=== PATIENT | female | born 1970 | race Caucasian/White ===

== ENCOUNTER 2020-05-26 22:33 | Emergency (ER) | payer OTHER, SELFPAY ==
[2020-05-26 22:50] VITALS: BP 187/99; PULSE 91; RESP 18; TEMP 36.5; O2SAT 98; BMI 35.2
--- NOTE | 2020-05-26 22:56 | CTR_ITS ---
PROCEDURE INFORMATION: Exam: CT Head Without Contrast Exam date and time: 05/26/2020 11:09 PM Age: 49 years old Clinical indication: Pain; Headache; Additional info: Severe headache TECHNIQUE: Imaging protocol: Computed tomography of the head without contrast. Radiation optimization: All CT scans at this facility use at least one of these dose optimization techniques: automated exposure control; mA and/or kV adjustment per patient size (includes targeted exams where dose is matched to clinical indication); or iterative reconstruction. COMPARISON: CT head wo con* [id number] 10/06/2019 7:29 PM RADIATION DOSE METRICS: Total DLP (mGy-cm): 775.62 FINDINGS: Brain: No acute intracranial hemorrhage or mass effect. Apparent old infarcts again seen in the high left parietal region, and right cerebellum, not significantly changed. No definite acute infarct by CT. Ventricles: Ventricle size is normal for age. Bones/joints: No definite acute skull fracture. Sinuses: Included paranasal sinuses are essentially clear. Mastoid air cells: No significant acute finding. Vasculature: Vascular calcifications in the internal carotid arteries. CT/CT head wo con* [id number] IMPRESSION: 1. No acute intracranial hemorrhage or mass effect. 2. Other findings discussed above. Radiation Dose CTDIVOL = (mGy): DLP = 775.62 (mGy-cm)
--- NOTE | 2020-05-26 22:57 | ED_ITS ---
HPI - Headache General: Chief Complaint: Headache Stated Complaint: vo Time Seen by Provider: 05/26/20 22:56 Source: patient Mode of arrival: ambulatory Limitations: no limitations History of Present Illness: HPI Narrative: Patient comes in with a 3-day history of headache. Patient has been using acetaminophen and ibuprofen with some relief but the headache with always return. Patient states that the headaches different than her usual migraines. Patient appears well. Patient appears in moderate pain. MD elicited complaint: headache Review of Systems General: Reports: 10 or more systems reviewed and unremarkable except in HPI and below Neuro: Reports: headache(s) Physical Exam Const: COMMON NORMALS: no acute distress and patient oriented x3 GENERAL APPEARANCE: cooperative HENMT: COMMON NORMALS: normocephalic, TM's normal bilaterally and Normal external nose present HEAD & SCALP: normal to inspection and normocephalic NOSE: Normal external nose present TYMPANIC MEMBRANE: TM's normal bilaterally MOUTH: Normal oral and palatal mucosa present THROAT: posterior oropharynx normal Eye: GENERAL EYE: appearance normal, both eyes and all related structures Neck/C-Spine: COMMON NORMALS: full ROM Chest: COMMONS NORMALS: normal inspection of the chest Resp: COMMON NORMALS: normal respiratory effort EFFORT & INSPECTION: Yes able to speak in complete sentences Cardio: COMMON NORMALS: regular rate and regular rhythm RATE: regular rate RHYTHM: regular rhythm GI: COMMON NORMALS: non-tender Back/Pelvis: COMMON NORMALS: thoracic and lumbar spine normal to inspection Extremity: COMMON NORMALS: normal to inspection Neuro: COMMON NORMALS: patient oriented x3 and moves all extremities Psych: COMMON NORMALS: mental status grossly normal and cooperative Skin: COMMON NORMALS: no rashes or lesions noted GENERAL SKIN EXAM: no rashes or lesions noted Course ED course: 1230, patient resting well. Reviewed CT scan and updated on waiting time for lab.wjw 0115, patient has complete resolution of headache and wishes to go home. Vital signs were normal. Patient was released to home with recommendations for further treatment. Vital Signs: Vital signs: Vital Signs Temperature 97.7 F 05/26/20 22:50 Pulse Rate 91 05/26/20 22:50 Respiratory Rate 18 05/26/20 22:50 Blood Pressure 187/99 05/26/20 22:50 Pulse Oximetry 98 05/26/20 22:50 MDM - Headache MDM Narrative: Medical decision making narrative: Patient comes in today with a headache. Patient appears well. No focal neural deficits were noted. Vital signs were normal except for elevated blood pressure. Differential diagnosis includes intracranial bleeding, migraine headache, malingering. Patient was treated for migraine headache with Reglan and diphenhydramine with good results. CT scan of the head was done which showed no acute abnormalities, patient does have some areas of old infarct. Recommend patient follow-up with primary care for abortive treatments for migraine headache. Recommend return to the ER for return of symptoms or new concerns. Discharge Plan Discharge Patient Disposition: Home, Self-Care Clinical Impression: Migraine Qualifiers: Migraine type: unspecified Status migrainosus presence: without status migrainosus Intractability: not intractable Qualified Code(s): G43.909 - Migraine, unspecified, not intractable, without status migrainosus Condition: Stable Discharge Orders: Discharge Order (Routine); Ordered 05/27/20 Ordered By: Zia Melara Discharge Diet: Usual diet Discharge Activity: Increase activity as tolerated Activity Restrictions/Additional Instructions: Home and rest. Continue with routine medications and treatment. Follow-up with primary care for further concerns. Return to the ED for new concerns. Coding Level of Care Code ED Telephone Station Repairer for Courtney Fwyeni Exam Comprehensive
[2020-05-26] MEDS: diphenhydrAMINE 50 mg/mL SDV 1mL 25 MG IVP (23:48)
[2020-05-26] MEDS: sodium chloride 0.9% 500 ML 999 ML IV (23:49)
[2020-05-26] MEDS: metoclopramide 5 mg/mL SDV 2 mL 10 MG IVP (23:49)
[2020-05-27 01:41] VITALS: BP 165/84; PULSE 75; RESP 18; O2SAT 99
== END 2020-05-27 01:43 | disposition home or self-care (01) ==
PROVIDERS: Emergency Provider Nurse Practitioner Family
DX: G43.909 Migraine, unspecified, not intractable, without status migrainosus (principal)
CPT/HCPCS: 12345; 70450; 96361; 96374; 96375; 99282; 99283; J1200; J2765; J7040

== ENCOUNTER 2020-07-30 14:30 | Outpatient (CLI) | payer OTHER, SELFPAY ==
--- NOTE | 2020-07-30 14:41 | MR_ITS ---
WS: [id number] MRI LEFT KNEE HISTORY: OTHER instability, LEFT KNEE COMPARISON: None available. Anterior cruciate ligament: Abnormal appearance of the ACL. There is thickening of the mid to distal tendon with increased signal. High-grade if not complete tear proximally. Posterior cruciate ligament: Intact. Medial collateral ligament: Intact. Posterior lateral corner structures: Intact. Medial menisci: Intact. Normal signal, size and shape. Lateral meniscus: Intact. Normal signal, size and shape. Extensor mechanism: Distal quadriceps tendon and patellar tendons are intact. Fluid and soft tissue: Very small suprapatellar joint effusion. No Do's cyst. Osseous and articular structures: Patellofemoral compartment: Normal. Medial compartment: Very minimal amount of increased T2 signal in the tibial metaphysis. Very mild na rrowing of the medial compartment. Lateral compartment: Minimal narrowing of the compartment fissures and thinning of the cartilage but no full-thickness defect. MR/MR knee LT wo con* [id number] IMPRESSION: 1. High-grade if not complete proximal ACL tear. 2. Mild narrowing of the medial lateral compartments with mild loss of cartila ge.
== END 2020-07-30 14:31 | disposition home or self-care (01) ==
LOC: RADWPI 14:37
PROVIDERS: PCP Nurse Practitioner; Visit Provider Nurse Practitioner
DX: M25.362 Other instability, left knee (principal); S43.52XA Sprain of left acromioclavicular joint, initial encounter; X58.XXXA Exposure to other specified factors, initial encounter
CPT/HCPCS: 73721

== ENCOUNTER 2020-09-04 09:16 | Outpatient (RCR) | payer OTHER, SELFPAY | END 2020-09-08 23:59 | disposition home or self-care (01) | LOC: SPT 09:16 | PROVIDERS: PCP Nurse Practitioner; Referring Provider Orthopaedic Surgery; Visit Provider Orthopaedic Surgery | DX: S83.512A Sprain of anterior cruciate ligament of left knee, initial encounter (principal) | CPT/HCPCS: 97110; 97162 ==

== ENCOUNTER 2020-09-09 06:00 | Outpatient (RCR) | payer OTHER, SELFPAY | END 2020-10-08 23:59 | disposition home or self-care (01) | LOC: SPT 06:00 | PROVIDERS: PCP Nurse Practitioner; Referring Provider Orthopaedic Surgery; Visit Provider Orthopaedic Surgery | DX: S83.512D Sprain of anterior cruciate ligament of left knee, subsequent encounter (principal); X58.XXXD Exposure to other specified factors, subsequent encounter | CPT/HCPCS: 97110 ==

== ENCOUNTER 2022-01-21 06:00 | Outpatient (RCR) | payer OTHER, SELFPAY | END 2022-02-06 23:59 | disposition home or self-care (01) | LOC: GST 06:00 | PROVIDERS: PCP Nurse Practitioner Family; Referring Provider Nurse Practitioner Family; Visit Provider Nurse Practitioner Family | DX: I69.328 Other speech and language deficits following cerebral infarction (principal); I69.398 Other sequelae of cerebral infarction; K11.7 Disturbances of salivary secretion | CPT/HCPCS: 92507; 92523 ==

== ENCOUNTER 2022-02-07 06:00 | Outpatient (RCR) | payer OTHER, SELFPAY | END 2022-02-20 23:59 | disposition home or self-care (01) | LOC: GST 06:00 | PROVIDERS: PCP Nurse Practitioner Family; Referring Provider Nurse Practitioner Family; Visit Provider Nurse Practitioner Family | DX: I69.328 Other speech and language deficits following cerebral infarction (principal); I69.398 Other sequelae of cerebral infarction; K11.7 Disturbances of salivary secretion | CPT/HCPCS: 92507 ==

== ENCOUNTER → 2022-03-26 08:52 | Outpatient (BNVA) | payer OTHER, SELFPAY | PROVIDERS: PCP Nurse Practitioner Family; Visit Provider Family Medicine | DX: G45.9 Transient cerebral ischemic attack, unspecified (principal); I63.512 Cerebral infarction due to unspecified occlusion or stenosis of left middle cerebral artery; Z20.822 Contact with and (suspected) exposure to COVID-19 | CPT/HCPCS: 87635 ==

== ENCOUNTER 2022-03-28 10:57 | Day surgery (SDC) | payer OTHER, SELFPAY ==
[2022-03-27 13:11] VITALS: BMI 35.5
--- NOTE | 2022-03-28 11:47 | USCV_ITS ---
Kelly Villarreal Age: 51 Gender: F : 1970 Exam Date: 03/28/2022 13:52 Ordering Phys: Rosio Alvarez MD ([email or web address]) Technologist: [place] Exam Location: [facility] [place] Indication: Cerebral infarction BP: 177 / 97 HR: 53 Rhythm: Sinus Technical Quality: Adequate MEASUREMENTS (Male / Female) Normal Values Medications Patient given IV sedation by anesthesia service, for details please refer to the anesthesia report. Complications Intubation easy. Attempts x1. No blood on probe post procedure. Patient tolerated procedure well. Proc. Components The patient was brought to the [facility] examination room in a fasting state after obtaining an informed consent. FINDINGS Left Ventricle Normal left ventricular size, systolic function and wall thickness, with no regional wall motion abnormalities. Left ventricular ejection fraction is estimated at 60 %. Right Ventricle Normal right ventricular size and systolic function. Right Atrium Normal right atrial size. Left Atrium Normal left atrial size. LA Appendage Normal left atrial appendage. Normal flow velocities in the left atrial appendage. No thrombus visualized in the left atrial appendage. IA Septum Normal interatrial septum. No patent foramen ovale. No evidence for an atrial septal defect. Mitral Valve Structurally normal mitral valve. No mitral valve stenosis. Mild mitral valve regurgitation. Aortic Valve Structurally normal trileaflet aortic valve. No aortic valve stenosis. Trace aortic valve regurgitation. Tricuspid Valve Structurally normal tricuspid valve. No tricuspid valve stenosis. Trace to mild tricuspid valve regurgitation. Pulmonic Valve Structurally normal pulmonic valve. No pulmonary valve stenosis. Trace pulmonary valve regurgitation. Pericardium No pericardial effusion. Aorta Normal size aortic root and proximal ascending aorta. Normal descending aorta size. No dilation, aneurysm or dissection. Grade 2 atheroma in proximal descending aorta. CONCLUSIONS 1. Normal left ventricular size, systolic function and wall thickness, with no regional wall motion abnormalities. Left ventricular ejection fraction is estimated at 60 %. 2. No evidence of ASD or PFO by color doppler and agitated saline study. 3. Mild mitral valve regurgitation. 4. Trace aortic valve regurgitation. Rosio Alvarez MD (Electronically Signed) Final Date: 29 Mar 2022 22:22 S
[2022-03-28 11:48] VITALS: BP 149/103; PULSE 64; RESP 16; O2SAT 95
--- NOTE | 2022-03-28 11:52 | P.ANESASSM_ITS ---
Pre-Anesthetic Assessment Height/Weight: Height 1.52 m Weight 82.554 kg Operation Date: 03/28/22 12:30 Proposed Procedures p TIMMY 87322/cerebral infraction I63.9/K11.7 disturbances(Not Applicable) - Rosio Alvarez MD Familial anesthetic complications: None Was Beta Ayala taken within 24 hours: N/A Was Clonidine taken within 24 hours: N/A Last intake: > 8hrs Social Tobacco and No alcohol Exam alert, oriented x 3, clear to auscultation bilaterally and regular rate & rhythm minimal R insp wheeze Airway Mallampati: Class I Dentition: false Pulmonary None reported CV/HEM Hypertension None reported Hepatic None reported GI None reported Metabolic Hyperlipidemia and Morbid Obesity [facility] [place] [place] None reported Neuropsych Cerebrovascular Accident Anesthetic Plan ASA status: 3 Anesthesia: MAC Risk of > 500 ml blood loss (7ml/kg in children): No Medications/Allergies Home Medications Medication Instructions Recorded Confirmed Last Taken Type atorvastatin 40 mg tablet 40 mg PO DAILY 01/14/22 03/28/22 03/27/22 History clopidogrel 75 mg tablet (Plavix) 75 mg PO DAILY 01/14/22 03/28/22 03/27/22 History hydroxyzine HCl 25 mg tablet 25 mg PO TID PRN #180 tab 01/14/22 03/28/22 03/27/22 Rx sertraline 50 mg tablet 50 mg PO DAILY #90 tab 01/14/22 03/28/22 03/27/22 Rx atenolol 50 mg tablet 50 mg PO DAILY #90 tab 01/30/22 03/28/22 03/27/22 Rx folic acid-vit B6-vit B12 2.5 1 tab PO DAILY #90 tab 03/14/22 03/28/22 03/27/22 Rx mg-25 mg-2 mg tablet nystatin 100,000 unit/gram topical 1 applic TOPICAL TID PRN g 03/26/22 03/28/22 03/07/22 History powder Allergies Allergy/AdvReac Type Severity Reaction Status Date / Time codeine Allergy Severe ALGY-Difficulty Verified 03/27/22 13:03 Breathing cephalexin [From Keflex] Allergy ALGY-Rash Verified 03/27/22 13:03 [facility] Anesthesia Medical History (Updated 03/27/22 @ 20:13 by Rosio Alvarez MD) Dyslipidemia History of stroke October of 2010 Hypertension Surgical History (Updated 03/27/22 @ 20:00 by Rosio Alvarez MD) History of History of cholecystectomy S/P hysterectomy Family History Father Myocardial infarction Diabetes Hypertension Mother Hypertension Dementia Social History Smoking and tobacco status: former smoker Alcohol intake: current Alcohol intake frequency: few times a month Data Anesthesia Cardiac Studies: No Data to Display
[2022-03-28] MEDS: sodium chloride 0.9% 1,000 ML 30 ML IV (12:09)
--- NOTE | 2022-03-28 13:48 | W.PM.OPSUD ---
Surgery/Procedure H&P Update DATE OF PROCEDURE: March 28, 2022 DATE H&P PERFORMED: 03/26/22 H&P UPDATE INFORMATION: I have reviewed H&P completed within last 30 days, I have examined patient prior to procedure and No changes to prior documentation PREOP DIAGNOSIS: Stroke PLANNED PROCEDURE: Operation Date: 03/28/22 12:30 Proposed Procedures p TIMMY 82710/cerebral infraction I63.9/K11.7 disturbances(Not Applicable) - Rosio Alvarez MD PATIENT REASSESSED PRIOR TO SEDATION, WITH NO CHANGE NOTED: Yes PHYSICAL EXAM: alert, oriented x 3, clear to auscultation bilaterally and regular rate & rhythm AIRWAY EVAL/ANESTHESIA PLAN: Risks, benefits & alternatives of sedation and/or procedure discussed and Patient agrees to continue as planned
[2022-03-28 14:32] VITALS: BP 123/74; PULSE 80; RESP 18; TEMP 36.2; O2SAT 95
[2022-03-28 14:37] VITALS: BP 131/81; PULSE 71; RESP 18; O2SAT 97
[2022-03-28 14:51] VITALS: BP 122/81; PULSE 64; RESP 18; TEMP 36.4; O2SAT 97
--- NOTE | 2022-03-28 15:00 | ANE.PACU2 ---
Inpatient post-anesthesia follow up: Airway intact: Yes Vital signs: Temperature 97.6 F Pulse Rate 64 Respiratory Rate 18 Blood Pressure 122/81 Pulse Oximetry 97 Oxygen Delivery Me thod Room Air Oxygen Flow Rate 3 Fraction of Inspir ed Oxygen Hydration adequate: Yes Nausea and vomiting: No Pain level: 1 Mental status: Baseline
== END 2022-03-28 15:05 | disposition home or self-care (01) ==
PROVIDERS: PCP Nurse Practitioner Family; Visit Provider Internal Medicine Cardiovascular Disease
PROC: (CPT 93312; principal; 2022-03-28 12:30)
DX: Z86.73 Personal history of transient ischemic attack (TIA), and cerebral infarction without residual deficits (principal); E78.5 Hyperlipidemia, unspecified; E66.01 Morbid (severe) obesity due to excess calories; Z68.35 Body mass index [BMI] 35.0-35.9, adult; I10 Essential (primary) hypertension; Z87.891 Personal history of nicotine dependence
CPT/HCPCS: 93312; 93320; 93325; J2001; J2704; J7030

== ENCOUNTER → 2022-04-21 08:24 | Outpatient (BNVA) | payer OTHER, SELFPAY | PROVIDERS: PCP Nurse Practitioner Family; Visit Provider Nurse Practitioner Family | DX: G45.9 Transient cerebral ischemic attack, unspecified (principal); I69.30 Unspecified sequelae of cerebral infarction | CPT/HCPCS: 80053; 80061; 85025 ==

== ENCOUNTER 2022-05-27 14:02 | Outpatient (CLI) | payer OTHER, SELFPAY ==
--- NOTE | 2022-05-27 | MR_ITS ---
WS: [id number] MRI BRAIN WITH AND WITHOUT CONTRAST HISTORY: TRANSIENT CEREBRAL ISCHEMIC ATTACK, UNSPECIFIED COMPARISON: 04/30/2018 TECHNIQUE: Multiplanar imaging performed through the brain with ProHance 17 ml's IV. No restricted diffusion. There is no acute infarct or ischemia. Encephalomalacia in the posterior LEF T frontal lobe with surrounding gliosis is unchanged. From a remote infarct. No acute hemorrhage. No significant volume loss. Chronic small lacunar infarcts in the RIGHT cerebellum. Similar to the prior studies. There is very mild T2 and FLAIR signal hyperintensities from chronic ischemic disease which is unchan ged. Ventricles and extra-axial spaces are normal. Clivus and pituitary gland are normal. Postcontrast images are negative for masses or vascular malformations. Dominant RIGHT vertebral arter y. Dural venous sinuses are normal. Paranasal sinuses: Well aerated with no significant disease. Mastoid air cells: Normal. Calvarium and scalp: Normal. MR/MR head wo/w con [id number] IMPRESSION: 1. No acute infarct or ischemic change. 2. Stable MRI brain since 04/30/2018. 3. Remote infarct with gliosis in the posterior LEFT frontal lobe. 4. Stable small lacunar infarcts in the RIGHT cerebellum. 5. No mass.
--- NOTE | 2022-05-27 16:57 | MR_ITS ---
WS: [id number] MRA ANGIOGRAPHY [place] HISTORY: G45.9 - Transient cerebral ischemic attack, unspecified COMPARISON: None available. TECHNIQUE: 3-D MR angiography is performed of the [place]. All images are reviewed including source images. Small caliber but patent LEFT vertebral artery. The RIGHT vertebral artery is dominant. Normal size b asilar artery. Posterior communicating arteries are both identified with the RIGHT being larger in si [place]. Posterior cerebral arteries are patent. Intracranial portion of the internal carotid arteries are normal course and caliber. No significant a therosclerosis, stenosis or aneurysm identified. Middle and anterior cerebral arteries are both paten t with no significant disease. Very slight decrease in size of the LEFT distal MCA but this is probab ly normal for this patient. No occlusions. Anterior communicating artery is also normal. MR/MR angio head wo con [id number] IMPRESSION: 1. No aneurysm or significant occlusions throughout the [place]. 2. Dominant RIGHT vertebral artery.
== END 2022-05-27 14:03 | disposition home or self-care (01) ==
PROVIDERS: PCP Nurse Practitioner Family; Visit Provider Specialist
DX: G45.9 Transient cerebral ischemic attack, unspecified (principal); I69.30 Unspecified sequelae of cerebral infarction; G35 Multiple sclerosis
CPT/HCPCS: 70544; 70553

== ENCOUNTER 2022-09-22 18:45 | Outpatient (CLI) | payer OTHER, SELFPAY | END 2022-09-22 18:46 | disposition home or self-care (01) | LOC: SLEEP 09-24 09:39 | PROVIDERS: PCP Nurse Practitioner Family; Visit Provider Internal Medicine Cardiovascular Disease | DX: G47.33 Obstructive sleep apnea (adult) (pediatric) (principal); I69.30 Unspecified sequelae of cerebral infarction | CPT/HCPCS: G0399 ==

== ENCOUNTER → 2023-05-27 15:21 | Outpatient (BNVA) | payer OTHER, SELFPAY | PROVIDERS: PCP Nurse Practitioner Family; Visit Provider Nurse Practitioner Family | DX: E78.5 Hyperlipidemia, unspecified (principal); I10 Essential (primary) hypertension | CPT/HCPCS: 80053; 80061; 84443; 85025 ==

== ENCOUNTER 2024-03-18 04:43 | Emergency (ER) | payer OTHER, SELFPAY ==
--- NOTE | 2024-03-18 04:50 | XRR_ITS ---
PROCEDURE INFORMATION: Exam: XR Chest Exam date and time: 03/18/2024 5:13 AM Age: 53 years old Clinical indication: Angina; Additional info: Chest pain TECHNIQUE: Imaging protocol: Radiologic exam of the chest. Views: 1 view. COMPARISON: No relevant prior studies available. FINDINGS: Lungs: Unremarkable. No consolidation. Pleural spaces: Unremarkable. No pleural effusion. No pneumothorax. Heart/Mediastinum: Unremarkable. No cardiomegaly. Bones/joints: Unremarkable. XR/XR chest 1V portable [id number] IMPRESSION: No acute cardiopulmonary findings.
--- NOTE | 2024-03-18 04:50 | ECG_ITS ---
[facility] Test Date: 2024-03-18 Pat Name: Kelly Villarreal Department: Room: Gender: Female Cut To Length Operator: : 1970 Requested By: Dale Kimbrough Order Number: [id number] Erendira MD: Jason Mayo M.D. Measurements Intervals [place] Rate: 62 P: 24 CO: 148 QRS: 62 QRSD: 89 T: 21 QT: 393 QTc: 400 Interpretive Statements SINUS RHYTHM No previous ECG available for comparison Electronically Signed On 03-18-2024 9:19:37 CDT by Jason Mayo M.D. [email or web address]
[2024-03-18 04:58] VITALS: BP 166/69; PULSE 62; RESP 20; TEMP 36.6; O2SAT 96; BMI 36.3
--- NOTE | 2024-03-18 05:02 | ED_ITS ---
Documented by User: Dale Kimbrough DO 03/18/24 05:07 HPI - Chest Pain 2 General: Chief Complaint: Chest Pain Stated Complaint: Chest Pains Time Seen by Provider: 03/18/24 04:51 History of Present Illness: Patient presents to the ER with chest pain that woke her up from sleep at about 2 AM this morning. Patient said it was substernal and had some numbness that went to her left arm at times at other times went to her right arm. Patient says she did take a nitro and the pain had resolved upon arrival to the ER. Patient is never had any cardiac history before. Patient does have a history of strokes. Patient is on Xarelto. She denies any shortness of breath, diaphoresis, nausea vomiting, Review of Systems 2 General: Reports: 10 or more systems reviewed and unremarkable except in HPI and below PFSH ED 2 PFSH: Medical History Dyslipidemia History of stroke October of 2010 Hypertension Left acute arterial ischemic stroke, MCA (middle cerebral artery) Stroke Surgical History History of cholecystectomy History of S/P hysterectomy Family History Father Myocardial infarction Diabetes Hypertension Mother Hypertension Dementia Social History Smoking and tobacco/nicotine status: never used tobacco/nicotine Alcohol intake: current Alcohol intake frequency: few times a month Substance/Drug Use: never Physical Exam 2 Const: COMMON NORMALS: no acute distress, average body habitus, patient oriented x3, no limitations, healthy appearing, alert and well nourished HENMT: COMMON NORMALS: normocephalic, atraumatic, hearing grossly normal bilaterally, external ears normal, Normal external nose present, moist oral mucous membranes and oropharynx normal HEAD & SCALP: normocephalic and atraumatic NOSE: Normal external nose present EXTERNAL EAR: Yes external ears normal Neck/C-Spine: COMMON NORMALS: no JVD Chest: COMMONS NORMALS: normal inspection of the chest and normal palpation of entire chest wall Resp: COMMON NORMALS: normal respiratory effort, No retractions, No use of accessory muscles and clear to auscultation bilaterally AUSCULTATION: clear to auscultation bilaterally Cardio: COMMON NORMALS: no JVD, regular rate, regular rhythm, S1 normal heart sound present, S2 normal heart sound present, No gallops present (Cardio), No clicks present (Cardio), No murmurs present (Cardio) and No rub (Cardio) R ATE: regular rate RHYTHM: regular rhythm HEART SOUNDS: S1 normal heart sound present and S2 normal heart sound present GI: COMMON NORMALS: Normal to inspection, nondistended, normoactive bowel sounds present, Soft to palpation, non-tender, No hepatosplenomegaly present and no masses PALPATION: Yes Soft to palpation and Yes No hepatosplenomegaly present Neuro: COMMON NORMALS: patient oriented x3 SENSORIUM/ORIENTATION: Yes alert Course 2 Vital Signs: Vital signs: Vital Signs Temperature 97.8 F 03/18/24 04:58 Pulse Rate 58 L 03/18/24 06:31 Respiratory Rate 21 H 03/18/24 06:31 Blood Pressure 123/70 03/18/24 06:31 Pulse Oximetry 92 03/18/24 06:31 Oxygen Delivery Me thod Nasal Cannula 03/18/24 06:31 Oxygen Flow Rate 3 03/18/24 06:31 MDM - Chest Pain Differential Diagnosis Unlikely acute massive pulmonary embolism, acute respiratory failure, acute myocardial infarction, cardiac arrest or sudden cardiac Medical Records I reviewed the patient's medical records. Lab Data I reviewed the patient's lab results. 03/18/24 05:06 03/18/24 05:06 Laboratory Results WBC 11.34 10^3/uL (3.29-11.43) 03/18/24 05:06 RBC 5.09 10^6/uL (3.85-5.65) 03/18/24 05:06 Hgb 14.80 g/dL (11.27-16.99) 03/18/24 05:06 Hct 44.7 % (36-47) 03/18/24 05:06 MCV 87.8 fl (85-98) 03/18/24 05:06 MCH 29.1 pg (27-33) 03/18/24 05:06 MCHC 33.1 g/dL (30-55) 03/18/24 05:06 RDW 13.2 % (12.1-15.1) 03/18/24 05:06 Plt Count 199 10^3/cmm (157-399) 03/18/24 05:06 MPV 8.3 fL (7.4-10.4) 03/18/24 05:06 Neut % (Auto) 80.3 % 03/18/24 05:06 Lymph % (Auto) 11.4 % 03/18/24 05:06 [place] % (Auto) 6.3 % 03/18/24 05:06 Eos % (Auto) 1.3 % 03/18/24 05:06 Baso % (Auto) 0.4 % 03/18/24 05:06 Neut # (Auto) 9.11 10^3/uL (1.8-7.7) H 03/18/24 05:06 Lymph # (Auto) 1.3 10^3/uL (0.8-4.8) 03/18/24 05:06 [place] # (Auto) 0.7 10^3/uL (0.2-0.9) 03/18/24 05:06 Eos # (Auto) 0.2 10^3/uL (0.0-0.8) 03/18/24 05:06 Baso # (Auto) 0.1 10^3/uL (0.0-0.1) 03/18/24 05:06 Nucleated RBC % (auto) 0 % 03/18/24 05:06 Nucleated RBCs # 0.0 /100WBC 03/18/24 05:06 Sodium 139 mmol/L (136-145) 03/18/24 05:06 Potassium 4.3 mmol/L (3.5-5.1) 03/18/24 05:06 Chloride 103 mmol/L (98-107) 03/18/24 05:06 Carbon Dioxide 27 mmol/L (22-29) 03/18/24 05:06 Anion Gap 13.3 (5-19) 03/18/24 05:06 BUN 12 mg/dL (6-20) 03/18/24 05:06 Creatinine 0.9 mg/dL (0.5-0.9) 03/18/24 05:06 GFR Calculation 65.0 mL/min (90-130) L 03/18/24 05:06 Glucose 195 mg/dL (65-115) H 03/18/24 05:06 Calculated Osmolality 293 mOsm/kg (285-295) 03/18/24 05:06 Calcium 9.0 mg/dL (8.5-10.5) 03/18/24 05:06 Total Bilirubin 0.4 mg/dL (0.15-1.2) 03/18/24 05:06 AST 13 U/L (0-32) 03/18/24 05:06 ALT 13 U/L (0-33) 03/18/24 05:06 Alkaline Phosphatase 90 U/L (35-105) 03/18/24 05:06 Troponin T Baseline < 6 ng/L (0-10) 03/18/24 05:06 Troponin T 120 Minute 6.00 ng/L (0-10) 03/18/24 06:37 Delta Troponin T 0.08110 ABS# (0-10) 03/18/24 06:37 Total Protein 7.2 g/dL (6.6-8.7) 03/18/24 05:06 Albumin 4.0 g/dL (3.5-5.2) 03/18/24 05:06 Globulin 3.2 g/dL (1.3-4.6) 03/18/24 05:06 All radiology interpretation(s) finalized by discharge Discharge Plan Discharge Patient Disposition: Home Clinical Impression: Chest pain Condition: Stable Prescriptions: No Action nystatin 100,000 unit/gram powder 1 applic topical TID PRN (Reason: Rash) cyclobenzaprine 10 mg tablet 10 mg PO TID PRN (Reason: muscle spasm) Qty: 20 0RF atenolol 50 mg tablet See Rx Instructions .ROUTE .COMPLEX Qty: 90 0RF Dose Instruction: TAKE 1 TABLET BY MOUTH EVERY DAY Rx Instructions: TAKE 1 TABLET BY MOUTH EVERY DAY fluconazole 150 mg tablet 150 mg PO Q3D Qty: 2 0RF hydroxyzine HCl 25 mg tablet See Rx Instructions .ROUTE .COMPLEX Qty: 90 3RF Dose Instruction: TAKE ONE TABLET BY MOUTH THREE TIMES DAILY NEEDED FOR ANXIETY Rx Instructions: TAKE ONE TABLET BY MOUTH THREE TIMES DAILY NEEDED FOR ANXIETY sertraline 100 mg tablet See Rx Instructions .ROUTE .COMPLEX Qty: 90 3RF Dose Instruction: TAKE ONE TABLET BY MOUTH ONCE DAILY Rx Instructions: TAKE ONE TABLET BY MOUTH ONCE DAILY atorvastatin 40 mg tablet See Rx Instructions .ROUTE .COMPLEX Qty: 90 3RF Dose Instruction: TAKE ONE TABLET BY MOUTH ONCE DAILY AT BEDTIME Rx Instructions: TAKE ONE TABLET BY MOUTH ONCE DAILY AT BEDTIME Coricidin HBP Chest Kirk-Cough 10-200 mg capsule 1 tab-cap PO Q8H PRN (Reason: cough) Qty: 30 0RF Xarelto 20 mg tablet See Rx Instructions .ROUTE .COMPLEX Qty: 30 3RF Dose Instruction: TAKE ONE TABLET BY MOUTH ONCE DAILY MUST ADMINISTER WITH EVENING MEAL Rx Instructions: TAKE ONE TABLET BY MOUTH ONCE DAILY MUST ADMINISTER WITH EVENING MEAL Farxiga 10 mg tablet See Rx Instructions .ROUTE .COMPLEX Qty: 90 3RF Dose Instruction: TAKE ONE TABLET BY MOUTH ONCE DAILY IN THE MORNING Rx Instructions: TAKE ONE TABLET BY MOUTH ONCE DAILY IN THE MORNING Discharge Orders: Discharge ED (Routine); Ordered 03/18/24 Ordered By: Suzette Srinivasan Referrals: Nery Dumont JOB COUNSELOR [Primary Care Provider] - 4-7 days Discharge Diet: Advance as tolerated Discharge Activity: Resume usual activity Patient Instructions: Chest Pain (ED) Coding Level of Care Code ED Sales Market Leader for Chg Fwd Documented by User: Suzette Srinivasan MD 03/18/24 07:18 HPI - Chest Pain 2 General: Chief Complaint: Chest Pain Stated Complaint: Chest Pains Time Seen by Provider: 03/18/24 04:51 [facility] ED 2 PFSH: Medical History Dyslipidemia History of stroke October of 2010 Hypertension Left acute arterial ischemic stroke, MCA (middle cerebral artery) Stroke Surgical History History of cholecystectomy History of S/P hysterectomy Family History Father Myocardial infarction Diabetes Hypertension Mother Hypertension Dementia Social History Smoking and tobacco/nicotine status: never used tobacco/nicotine Alcohol intake: current Alcohol intake frequency: few times a month Substance/Drug Use: never Course 2 Vital Signs: Vital signs: Vital Signs Temperature 97.8 F 03/18/24 04:58 Pulse Rate 58 L 03/18/24 06:31 Respiratory Rate 21 H 03/18/24 06:31 Blood Pressure 123/70 03/18/24 06:31 Pulse Oximetry 92 03/18/24 06:31 Oxygen Delivery Me thod Nasal Cannula 03/18/24 06:31 Oxygen Flow Rate 3 03/18/24 06:31 MDM - Chest Pain Medical Decision Making Patient presents for chest pains atypical in nature she is well-appearing here she is not requiring any oxygen currently and vital signs are normal she was turned over to me by Dr. Kimbrough pending 2-hour troponin it is negative she is stable for discharge she is follow-up with PCP return if worsening she understands agrees to plan she has no signs of dissection or pulmonary embolism Lab Data 03/18/24 05:06 03/18/24 05:06 Laboratory Results WBC 11.34 10^3/uL (3.29-11.43) 03/18/24 05:06 RBC 5.09 10^6/uL (3.85-5.65) 03/18/24 05:06 Hgb 14.80 g/dL (11.27-16.99) 03/18/24 05:06 Hct 44.7 % (36-47) 03/18/24 05:06 MCV 87.8 fl (85-98) 03/18/24 05:06 MCH 29.1 pg (27-33) 03/18/24 05:06 MCHC 33.1 g/dL (30-55) 03/18/24 05:06 RDW 13.2 % (12.1-15.1) 03/18/24 05:06 Plt Count 199 10^3/cmm (157-399) 03/18/24 05:06 MPV 8.3 fL (7.4-10.4) 03/18/24 05:06 Neut % (Auto) 80.3 % 03/18/24 05:06 Lymph % (Auto) 11.4 % 03/18/24 05:06 [place] % (Auto) 6.3 % 03/18/24 05:06 Eos % (Auto) 1.3 % 03/18/24 05:06 Baso % (Auto) 0.4 % 03/18/24 05:06 Neut # (Auto) 9.11 10^3/uL (1.8-7.7) H 03/18/24 05:06 Lymph # (Auto) 1.3 10^3/uL (0.8-4.8) 03/18/24 05:06 [place] # (Auto) 0.7 10^3/uL (0.2-0.9) 03/18/24 05:06 Eos # (Auto) 0.2 10^3/uL (0.0-0.8) 03/18/24 05:06 Baso # (Auto) 0.1 10^3/uL (0.0-0.1) 03/18/24 05:06 Nucleated RBC % (auto) 0 % 03/18/24 05:06 Nucleated RBCs # 0.0 /100WBC 03/18/24 05:06 Sodium 139 mmol/L (136-145) 03/18/24 05:06 Potassium 4.3 mmol/L (3.5-5.1) 03/18/24 05:06 Chloride 103 mmol/L (98-107) 03/18/24 05:06 Carbon Dioxide 27 mmol/L (22-29) 03/18/24 05:06 Anion Gap 13.3 (5-19) 03/18/24 05:06 BUN 12 mg/dL (6-20) 03/18/24 05:06 Creatinine 0.9 mg/dL (0.5-0.9) 03/18/24 05:06 GFR Calculation 65.0 mL/min (90-130) L 03/18/24 05:06 Glucose 195 mg/dL (65-115) H 03/18/24 05:06 Calculated Osmolality 293 mOsm/kg (285-295) 03/18/24 05:06 Calcium 9.0 mg/dL (8.5-10.5) 03/18/24 05:06 Total Bilirubin 0.4 mg/dL (0.15-1.2) 03/18/24 05:06 AST 13 U/L (0-32) 03/18/24 05:06 ALT 13 U/L (0-33) 03/18/24 05:06 Alkaline Phosphatase 90 U/L (35-105) 03/18/24 05:06 Troponin T Baseline < 6 ng/L (0-10) 03/18/24 05:06 Troponin T 120 Minute 6.00 ng/L (0-10) 03/18/24 06:37 Delta Troponin T 0.88147 ABS# (0-10) 03/18/24 06:37 Total Protein 7.2 g/dL (6.6-8.7) 03/18/24 05:06 Albumin 4.0 g/dL (3.5-5.2) 03/18/24 05:06 Globulin 3.2 g/dL (1.3-4.6) 03/18/24 05:06 EKG Data EKG 1: I personally reviewed and interpreted this EKG as follows: EKG interpretation date: 03/18/24 EKG interpretation time: 07:08 Interpretation: sinus barb hr [address] or t wave abnormalities qrs 94 qtc 399 Discharge Plan Discharge Patient Disposition: Home Clinical Impression: Chest pain Condition: Stable Prescriptions: No Action nystatin 100,000 unit/gram powder 1 applic topical TID PRN (Reason: Rash) cyclobenzaprine 10 mg tablet 10 mg PO TID PRN (Reason: muscle spasm) Qty: 20 0RF atenolol 50 mg tablet See Rx Instructions .ROUTE .COMPLEX Qty: 90 0RF Dose Instruction: TAKE 1 TABLET BY MOUTH EVERY DAY Rx Instructions: TAKE 1 TABLET BY MOUTH EVERY DAY fluconazole 150 mg tablet 150 mg PO Q3D Qty: 2 0RF hydroxyzine HCl 25 mg tablet See Rx Instructions .ROUTE .COMPLEX Qty: 90 3RF Dose Instruction: TAKE ONE TABLET BY MOUTH THREE TIMES DAILY NEEDED FOR ANXIETY Rx Instructions: TAKE ONE TABLET BY MOUTH THREE TIMES DAILY NEEDED FOR ANXIETY sertraline 100 mg tablet See Rx Instructions .ROUTE .COMPLEX Qty: 90 3RF Dose Instruction: TAKE ONE TABLET BY MOUTH ONCE DAILY Rx Instructions: TAKE ONE TABLET BY MOUTH ONCE DAILY atorvastatin 40 mg tablet See Rx Instructions .ROUTE .COMPLEX Qty: 90 3RF Dose Instruction: TAKE ONE TABLET BY MOUTH ONCE DAILY AT BEDTIME Rx Instructions: TAKE ONE TABLET BY MOUTH ONCE DAILY AT BEDTIME Coricidin HBP Chest Kirk-Cough 10-200 mg capsule 1 tab-cap PO Q8H PRN (Reason: cough) Qty: 30 0RF Xarelto 20 mg tablet See Rx Instructions .ROUTE .COMPLEX Qty: 30 3RF Dose Instruction: TAKE ONE TABLET BY MOUTH ONCE DAILY MUST ADMINISTER WITH EVENING MEAL Rx Instructions: TAKE ONE TABLET BY MOUTH ONCE DAILY MUST ADMINISTER WITH EVENING MEAL Farxiga 10 mg tablet See Rx Instructions .ROUTE .COMPLEX Qty: 90 3RF Dose Instruction: TAKE ONE TABLET BY MOUTH ONCE DAILY IN THE MORNING Rx Instructions: TAKE ONE TABLET BY MOUTH ONCE DAILY IN THE MORNING Discharge Orders: Discharge ED (Routine); Ordered 03/18/24 Ordered By: Suzette Srinivasan Referrals: Nery Dumont NP [Primary Care Provider] - 4-7 days Discharge Diet: Advance as tolerated Discharge Activity: Resume usual activity Patient Instructions: Chest Pain (ED) Coding Level of Care Code ED Sales Market Leader for Courtney Steele
[2024-03-18 05:12] LABS: Basophils # 0.1 10^3/uL (0.0-0.1); Basophils % 0.4 %; Eosinophils # 0.2 10^3/uL (0.0-0.8); Eosinophils % 1.3 %; Hematocrit 44.7 % (36-47); Lymphocytes # 1.3 10^3/uL (0.8-4.8); Lymphocytes % 11.4 %; Mean Corpuscular HGB Conc 33.1 g/dL (30-55); Mean Corpuscular Hemoglobin 29.1 pg (27-33); Mean Corpuscular Volume 87.8 fl (85-98); Mean Platelet Volume 8.3 fL (7.4-10.4); Monocytes # 0.7 10^3/uL (0.2-0.9); Monocytes % 6.3 %; Neutrophils # 9.11 10^3/uL (1.8-7.7); Neutrophils % 80.3 %; Nucleated Red Blood Cells % 0 %; Platelet Count 199 10^3/cmm (157-399); Red Blood Count 5.09 10^6/uL (3.85-5.65); Red Cell Distribution Width 13.2 % (12.1-15.1); White Blood Count 11.34 10^3/uL (3.29-11.43)
[2024-03-18 05:29] LABS: Troponin(5th) Baseline < 6 ng/L (0-10)
[2024-03-18 05:30] LABS: Alanine Aminotransferase 13 U/L (0-33); Alkaline Phosphatase 90 U/L (35-105); Anion Gap 13.3 (5-19); Aspartate Amino Transferase 13 U/L (0-32); Blood Urea Nitrogen 12 mg/dL (6-20); Carbon Dioxide 27 mmol/L (22-29); Chloride 103 mmol/L (98-107); Creatinine Clr Calc Pharmacy 68.0657; Globulin 3.2 g/dL (1.3-4.6); Glucose 195 mg/dL (65-115); Osmolality Calculated 293 mOsm/kg (285-295); Potassium 4.3 mmol/L (3.5-5.1); Sodium 139 mmol/L (136-145); Total Bilirubin 0.4 mg/dL (0.15-1.2); Total Protein 7.2 g/dL (6.6-8.7)
[2024-03-18 06:31] VITALS: BP 123/70; PULSE 58; RESP 21; O2SAT 92
--- NOTE | 2024-03-18 07:08 | ECG_ITS ---
[facility] Test Date: 2024-03-18 Pat Name: Kelly Villarreal Department: Room: Gender: Female Engine Tester: : 1970 Requested By: Dale Kimbrough Order Number: [id number] Erendira MD: Jason Mayo M.D. Measurements Intervals [place] Rate: 59 P: 19 IA: 153 QRS: 63 QRSD: 94 T: 37 QT: 400 QTc: 398 Interpretive Statements SINUS BRADYCARDIA NONSPECIFIC T-WAVE ABNORMALITY Compared to ECG 03/18/2024 04:45:40 T-wave abnormality now present Sinus rhythm no longer present Electronically Signed On 03-18-2024 9:22:38 CDT by Jason Mayo M.D. [id number]
[2024-03-18 07:09] LABS: Troponin 5 2HR Delta 0.00001 ABS# (0-10)
[2024-03-18 08:38] VITALS: BP 123/70; PULSE 58; RESP 21; TEMP 36.6; O2SAT 92
== END 2024-03-18 08:40 | disposition home or self-care (01) ==
PROVIDERS: Emergency Medicine; Emergency Provider Emergency Medicine; PCP Nurse Practitioner Family
DX: R07.9 Chest pain, unspecified (principal); E78.5 Hyperlipidemia, unspecified; Z86.73 Personal history of transient ischemic attack (TIA), and cerebral infarction without residual deficits; I10 Essential (primary) hypertension
CPT/HCPCS: 71045; 80053; 84484; 85025; 93005; 99285

== ENCOUNTER → 2024-07-20 09:21 | Outpatient (BNVA) | payer OTHER, SELFPAY | PROVIDERS: PCP Nurse Practitioner Family; Visit Provider Nurse Practitioner Family | DX: I10 Essential (primary) hypertension (principal); R73.09 Other abnormal glucose | CPT/HCPCS: 80053; 80061; 83036; 84443 ==

== ENCOUNTER → 2024-07-25 13:43 | Outpatient (BNVA) | payer OTHER, SELFPAY | PROVIDERS: PCP Nurse Practitioner Family; Visit Provider Nurse Practitioner Family | DX: E11.9 Type 2 diabetes mellitus without complications (principal) | CPT/HCPCS: 81000; 81003; 82043 ==

== ENCOUNTER → 2024-12-01 09:35 | Outpatient (BNVA) | payer BC, SELFPAY | PROVIDERS: PCP Nurse Practitioner Family; Visit Provider Nurse Practitioner Family | DX: E11.9 Type 2 diabetes mellitus without complications (principal) | CPT/HCPCS: 80053; 83036 ==

== ENCOUNTER → 2025-07-13 08:30 | Outpatient (BNVA) | payer OTHER, SELFPAY | PROVIDERS: PCP Family Medicine; Visit Provider Family Medicine | DX: I10 Essential (primary) hypertension (principal); R79.89 Other specified abnormal findings of blood chemistry; E78.5 Hyperlipidemia, unspecified; E11.9 Type 2 diabetes mellitus without complications; I69.30 Unspecified sequelae of cerebral infarction; Z79.01 Long term (current) use of anticoagulants; E83.42 Hypomagnesemia | CPT/HCPCS: 80053; 80061; 82043; 82306; 82607; 83036; 83735; 84443; 85025 ==

== ENCOUNTER 2025-07-25 11:22 | Outpatient (CLI) | payer OTHER, SELFPAY ==
--- NOTE | 2025-07-25 11:20 | MM_ITS ---
WS: [id number] BILATERAL 3D TOMOSYNTHESIS DIGITAL SCREENING MAMMOGRAPHY WITH CAD CLINICAL INFORMATION: Z12.31 - Encounter for screening mammogram for malignant ... HISTORY: Screening mammogram. No current complaints. COMPARISON: 2020 TECHNIQUE: Bilateral CC and MLO views. FINDINGS: Scattered fibroglandular densities bilaterally. No suspicious focal mass, asymmetry, calcifications, or architectural distortion. No evidence of malignancy. A few incidental punctate calcifications. MM/MM scr tomosynthesis [id number] IMPRESSION: DENSITY: There are scattered areas of fibroglandular density. BI-RADS: 2 - Benign. FOLLOW UP: 1 Year Follow-up Recommend return to annual screening mammography.
== END 2025-07-25 11:23 | disposition home or self-care (01) ==
PROVIDERS: PCP Family Medicine; Visit Provider Family Medicine
DX: Z12.31 Encounter for screening mammogram for malignant neoplasm of breast (principal); R92.323 Mammographic fibroglandular density, bilateral breasts; R92.1 Mammographic calcification found on diagnostic imaging of breast
CPT/HCPCS: 77063; 77067

== ENCOUNTER 2025-08-01 15:31 | Outpatient (CLI) | payer OTHER, SELFPAY ==
--- NOTE | 2025-08-01 15:45 | USCV_ITS ---
Kelly Villarreal Age: 55 Gender: F : 1970 Exam Date: 08/01/2025 15:59 Ordering Phys: Khanh Stringer DO Technologist: RANDY [place] [facility] [place]: cyanosis HISTORY: cyanosis PROCEDURES: Venous duplex imaging was performed in bilateral lower extremities. The following venous structures were evaluated: common femoral vein, profunda vein, proximal portion of the greater saphenous vein, superficial femoral vein, and the popliteal vein. In addition, the posterior tibial and peroneal trunk were evaluated. FINDINGS: Normal 2-D Doppler and augmentation and compressibility throughout the lower extremity venous structures. Additional imaging through the proximal calf veins also reveals no thrombus. Limited evaluation of the greater saphenous vein is patent with no thrombus. CONCLUSIONS No evidence of right lower extremity DVT. No evidence of left lower extremity DVT. Deejay Cox MD (Electronically Signed) Final Date: 02 August 2025 09:00 S
== END 2025-08-01 15:32 | disposition home or self-care (01) ==
LOC: RAD 15:31
PROVIDERS: PCP Family Medicine; Visit Provider Family Medicine
DX: I99.9 Unspecified disorder of circulatory system (principal)
CPT/HCPCS: 93970

== ENCOUNTER 2025-08-10 09:15 | Outpatient (CLI) | payer OTHER, SELFPAY ==
--- NOTE | 2025-08-10 09:45 | CT_ITS ---
WS: [id number] LDCT LUNG CANCER SCREENING TECHNIQUE: Noncontrast CT of the chest with coronal and sagittal reformatted images. CLINICAL INFORMATION: F17.219 - Nicotine dependence, cigarettes, with unspecifi... COMPARISON: None. DLP: 90.99 mGy.cm DIvol: Mean CTDIvol: 2.10 (mGy) All CT scans at [facility] use at least one of these dose optimization techniques: automated exposure control; mA and/or kV adjustment per patient size (includes targeted exams where dose is matched to clinical indication); or iterative reconstruction. FINDINGS: No mediastinal or hilar lymphadenopathy. No axillary lymphadenopathy. Subsegmental atelectasis in the lingula. No suspicious pulmonary parenchymal opacities. Aortic calcification. Normal caliber thoracic aorta. Mild coronary calcification. Normal caliber descending thoracic aorta. Cholecystectomy clips. Adrenal glands are normal. Small esophageal hiatal hernia. Mild thoracic curve. Mild thoracic kyphosis. CT/CT lung screening [id number] IMPRESSION: LUNG-RADS: 1-Negative FOLLOW UP: 12 Month: Continue annual screening with LDCT
== END 2025-08-10 09:16 | disposition home or self-care (01) ==
LOC: RAD 09:16
PROVIDERS: PCP Family Medicine; Visit Provider Family Medicine
DX: Z12.2 Encounter for screening for malignant neoplasm of respiratory organs (principal); F17.219 Nicotine dependence, cigarettes, with unspecified nicotine-induced disorders; J98.11 Atelectasis; I70.0 Atherosclerosis of aorta; M40.204 Unspecified kyphosis, thoracic region; I25.10 Atherosclerotic heart disease of native coronary artery without angina pectoris; Z90.49 Acquired absence of other specified parts of digestive tract; Z96.89 Presence of other specified functional implants
CPT/HCPCS: 71271

== ENCOUNTER 2025-08-31 06:22 | Day surgery (SDC) | payer OTHER, SELFPAY ==
[2025-08-31 06:40] VITALS: BP 145/91; PULSE 67; RESP 18; TEMP 36.6; O2SAT 95; BMI 36.7
--- NOTE | 2025-08-31 06:56 | P.HPUD_ITS ---
Surgery/Procedure H&P Update DATE OF PROCEDURE: August 31, 2025 DATE H&P PERFORMED: 08/08/25 H&P UPDATE INFORMATION: I have reviewed H&P completed within last 30 days, I have examined patient prior to procedure, No changes to prior documentation, H&P is in [facility] EMR on date indicated and Risks and benefits of the procedure reviewed PLANNED PROCEDURE: Operation Date: 08/31/25 07:40 Proposed Procedures p Colonoscopy [id number] [id number] Z12.11(Not Applicable) - Yuriy Marin MD
--- NOTE | 2025-08-31 06:57 | ANES.PREANE2 ---
Pre-Anesthetic Assessment Height/Weight: Height 1.52 m Weight 85.275 kg Temp Pulse Resp BP Pulse Ox O2 Del Method 97.9 F 67 18 145/91 95 Room Air 08/31/25 06:40 08/31/25 06:40 08/31/25 06:40 08/31/25 06:40 08/31/25 06:40 08/31/25 06:40 Preop Diagnosis: Screening Operation Date: 08/31/25 07:40 Proposed Procedures p Colonoscopy [id number] [id number] Z12.11(Not Applicable) - Yuriy Marin MD Was Beta Ayala taken within 24 hours: Yes Was Clonidine taken within 24 hours: N/A Last intake: Intake Last Liquid Date 08/30/25 Last Liquid Time 21:00 Last Solid Date 08/29/25 Last Solid Time 20:00 Social Tobacco Vaps Exam alert, oriented x 3, clear to auscultation bilaterally and regular rate & rhythm Airway Submandibular: within normal limits Cervical ROM: within normal limits Mallampati: Class II Dentition: false History/ROS No significant history except as noted and No significant complaints Pulmonary None reported CV/HEM Hypertension None reported Hepatic None reported GI None reported Metabolic Diabetes Mellitus and Morbid Obesity Neuropsych Anxiety and Cerebrovascular Accident Anesthetic Plan ASA status: 3 Anesthesia: Anesthesia Evaluation and MAC Risk of > 500 ml blood loss (7ml/kg in children): No Medications/Allergies Home Medications ?Medication ?Instructions ?Recorded ?Confirmed ?Last Taken ?Type nystatin 100,000 unit/gram topical 1 applic topical TID PRN Rash 03/26/22 08/28/25 03/07/22 History powder blood-glucose meter #1 ea 07/21/24 08/08/25 Unknown Rx blood sugar diagnostic (OneTouch #100 ea 07/22/24 08/08/25 Unknown Rx Verio test strips) lancets 31 gauge (Comfort Touch #100 ea 07/22/24 08/08/25 Unknown Rx Ultra Thin Lancets) trazodone 50 mg tablet 50 mg PO .qhs 90 days #90 tabs 08/07/25 08/28/25 08/28/25 Rx ondansetron 8 mg disintegrating 8 mg PO Q8H PRN nausea and 08/08/25 08/28/25 Unknown Rx tablet vomiting #3 tabs tirzepatide 2.5 mg/0.5 mL 2.5 mg (0.5 mL) SUBCUT .q7days #2 08/16/25 08/28/25 Unknown Rx subcutaneous pen injector mL ([place]) atenolol 50 mg tablet 25 mg PO BEDTIME 08/28/25 08/31/25 08/30/25 History cholecalciferol (vitamin D3) 125 125 mcg PO BEDTIME 08/28/25 08/28/25 08/28/25 History mcg (5,000 unit) tablet (Vitamin D3) cyanocobalamin (vitamin B-12) 5,000 mcg PO BEDTIME 08/28/25 08/28/25 08/28/25 History 5,000 mcg sublingual tablet (Vitamin B-12) cyclobenzaprine 10 mg tablet 10 mg PO TID PRN muscle spasm #30 08/28/25 08/28/25 08/28/25 Rx tabs dapagliflozin propanediol 10 mg 10 mg PO BEDTIME 08/28/25 08/28/25 08/28/25 History tablet (Farxiga) fluticasone propionate 50 1 spray intranasal DAILY PRN 08/28/25 08/28/25 Unknown History mcg/actuation nasal Allergy Symptoms spray,suspension (Flonase Allergy Relief) metformin 500 mg tablet,extended 500 mg PO BEDTIME 08/28/25 08/28/25 08/28/25 History release 24 hr montelukast 10 mg tablet 10 mg PO DAILY PRN Allergy Symptoms 08/28/25 08/28/25 Unknown History (Singulair) rivaroxaban 20 mg tablet (Xarelto) 20 mg PO BEDTIME 08/28/25 08/28/25 08/28/25 History rosuvastatin 10 mg tablet 10 mg PO BEDTIME 08/28/25 08/28/25 08/28/25 History sertraline 100 mg tablet 100 mg PO BEDTIME 08/28/25 08/28/25 08/28/25 History Allergies Allergy/AdvReac Type Severity Reaction Status Date / Time codeine Allergy Severe ALGY-Difficulty Verified 08/08/25 13:56 Breathing cephalexin (From Keflex) Allergy ALGY-Rash Verified 08/08/25 13:56 Current Medications Generic Name Dose Route Start Last Admin Trade Name Freq PRN Reason Stop Dose Admin Sodium Chloride 1,000 mls @ 15 mls/hr 08/31/25 06:29 08/31/25 06:52 Sodium Chloride 0.9% IV 09/01/25 06:28 15 mls/hr .Q24H PRN Administration COLONOSCOPY FLUIDS PFSH Anesthesia Medical History (Updated 08/16/25 @ 07:39 by Khanh Stringer DO) Dyslipidemia History of stroke October of 2010 Primary hypertension Left acute arterial ischemic stroke, MCA (middle cerebral artery) Stroke Surgical History (Updated 08/08/25 @ 14:16 by TIANA Osborn) History of cholecystectomy History of S/P hysterectomy Family History Father Myocardial infarction Diabetes Hypertension Mother Hypertension Dementia Social History Smoking and tobacco/nicotine status: current every day tobacco/nicotine user (vape w/nicotine) Alcohol intake: current Alcohol intake frequency: few times a month Substance/Drug Use: never Data Anesthesia Cardiac Studies: Transesophageal Echocardiogram 03/28/22
[2025-08-31 07:51] VITALS: BP 121/72; PULSE 61; RESP 18; TEMP 36.1; O2SAT 96
[2025-08-31 08:07] VITALS: BP 129/67; PULSE 59; RESP 16; TEMP 36.4; O2SAT 95
[2025-08-31 08:21] VITALS: BP 148/80; PULSE 62; RESP 16; TEMP 36.4; O2SAT 97
== END 2025-08-31 08:40 | disposition home or self-care (01) ==
PROVIDERS: PCP Family Medicine; Visit Provider Surgery
PROC: 0DJD8ZZ Inspection of Lower Intestinal Tract, Via Natural or Artificial Opening Endoscopic (ICD-10-PCS; CPT 45378; principal; 2025-08-31 07:40)
DX: Z12.11 Encounter for screening for malignant neoplasm of colon (principal); D12.3 Benign neoplasm of transverse colon; Z79.84 Long term (current) use of oral hypoglycemic drugs; E78.5 Hyperlipidemia, unspecified; I10 Essential (primary) hypertension; Z86.73 Personal history of transient ischemic attack (TIA), and cerebral infarction without residual deficits; F17.290 Nicotine dependence, other tobacco product, uncomplicated
CPT/HCPCS: 36416; 45380; 45385; 82962; 88305; J2704; J7030; J9999

== ENCOUNTER → 2025-09-06 12:28 | Outpatient (BNVA) | payer OTHER, SELFPAY | PROVIDERS: PCP Family Medicine; Referring Provider Family Medicine; Visit Provider Internal Medicine Cardiovascular Disease | DX: R07.9 Chest pain, unspecified (principal) | CPT/HCPCS: 93005 ==

== ENCOUNTER → 2025-09-22 10:00 | Outpatient (BNVA) | payer OTHER, SELFPAY | PROVIDERS: PCP Family Medicine; Visit Provider Internal Medicine Cardiovascular Disease | DX: R07.9 Chest pain, unspecified (principal); R00.1 Bradycardia, unspecified | CPT/HCPCS: 85025 ==

== ENCOUNTER 2025-09-26 05:56 | Outpatient (CLI) | payer OTHER, SELFPAY ==
[2025-09-26 06:30] VITALS: BP 126/73; PULSE 60; RESP 16; TEMP 36.6; O2SAT 97; BMI 35.7
--- NOTE | 2025-09-26 07:02 | W.PM.OPSUD ---
Surgery/Procedure H&P Update DATE OF PROCEDURE: September 26, 2025 DATE H&P PERFORMED: 09/13/25 H&P UPDATE INFORMATION: I have reviewed H&P completed within last 30 days, I have examined patient prior to procedure and No changes to prior documentation PREOP DIAGNOSIS: Cryptogenic stroke PRIMARY INDICATION FOR PROCEDURE: Same as above PLANNED PROCEDURE: Operation Date: 09/26/25 07:00 Proposed Procedures p Loop Recorder Insertion(Not Applicable) - Andrea Mckeon MD
--- NOTE | 2025-09-26 07:24 | P.OP_ITS ---
Operative Report Date of procedure: September 26, 2025 Surgeon: Andrea Mckeon MD Procedure: Date of Procedure: 09/26/2025 Name of the procedure: PLANTABLE [employer]ANT OPERATIONS WORKER INSERTION LOCATION: Cardiac Catheterization Laboratory REFERRING PROVIDER: PREOPERATIVE DIAGNOSIS: Cryptogenic stroke ESTIMATED BLOOD LOSS : None COMPLICATIONS: None. BRIEF HISTORY: Patient presented with recurrent CVA, suggesting cryptogenic stroke]. For further evaluation, an implantable admitting counselor was recommended PROCEDURE: The procedure was explained to the patient in detail with the risks and benefits. The risk of bleeding, hematoma, vascular injury, infection and other concomitant complications were explained in detail. The patient understood this well and consented to proceed. The patient was brought to the Cardiac Teletype Adjuster. The patient was given 900 mg Clindamycin preoperatively. The left side of the chest was cleaned and draped in a sterile fashion. 1% Xylocaine was used as local anesthetic agent. An incision was made in the left fourth intercostal space. Making use of the application device, the implantable admitting counselor was inserted, subcutaneously. 5 minutes of manual pressure was applied, at the puncture site. The patient tolerated the procedure very well and there were no complications. No bleeding or hematoma. Steri-Strips were applied over the insertion site followed by a sterile dressing. Patient was sent back to the medical floor in stable condition IMPLANTED DEVICE Reveal LINQII Model number: [id number] Serial number: [id number] Make: [employer] Parameters: Standard settings were applied( (tachycardia rate of 154 beats per minute , bradycardia rate of 40 beats per minute and a pause of 5 seconds ; symptom recording -2 episodes of 15 minutes. Atrial fibrillation detection was turned on Sensitivity was kept at 0.035 mV) The R wave sensing was 0.37 mV
--- NOTE | 2025-09-26 07:37 | P.TS_ITS ---
Transfer Summary Providers Date of Discharge/Transfer: 09/26/25 Attending Provider at Admission: recurrent episodes of syncope Attending Provider at Transfer: Andrea Mckeon MD Primary Care Provider: Khanh Stringer DO Transfer Plans: Anticipated date of transfer: 09/26/25 . Reason for Visit Reason for Visit I63.9 TS Data Recent Clincial Data Last Vital Signs Temp 97.9 F 09/26/25 06:30 Pulse 60 09/26/25 06:30 Resp 16 09/26/25 06:30 BP 126/73 09/26/25 06:30 Pulse Ox 97 09/26/25 06:30 O2 Del Method Room Air 09/26/25 06:30 Vital Signs Temp Pulse Resp BP Pulse Ox O2 Del Method 09/26/25 06:30 97.9 F 60 16 126/73 97 Room Air Intake & Output/Weight 09/24/25 09/25/25 09/26/25 09/27/25 06:59 06:59 06:59 06:59 Weight 182 lb 15.739 oz Vitals Last Vital Signs Temp 97.9 F 09/26/25 06:30 Pulse 60 09/26/25 06:30 Resp 16 09/26/25 06:30 BP 126/73 09/26/25 06:30 Pulse Ox 97 09/26/25 06:30 O2 Del Method Room Air 09/26/25 06:30 TS Medications Medications Discontinued Medications Clindamycin HCl (Clindamycin 150 Mg Capsule) 900 mg PO ONCE ONE; Protocol Stop: 09/26/25 06:01 Lidocaine/Epinephrine (Lidocaine-Epi 1% 20 Ml Inj) 20 ml INJECTION ONCE ONE Stop: 09/26/25 06:01 Lidocaine/Epinephrine (Lidocaine-Epi 1% Pf 1:200,000 30 Ml Sdv) Confirm Administered Dose 30 ml .ROUTE .STK-MED ONE Stop: 09/26/25 06:19 Allergies codeine Allergy (Severe, Verified 09/13/25 13:53) ALGY-Difficulty Breathing cephalexin (From Keflex) Allergy (Verified 09/13/25 13:53) ALGY-Rash Home Medications nystatin 100,000 unit/gram topical powder 1 applic topical TID PRN Rash 03/26/22 [History Confirmed 09/13/25] blood-glucose meter #1 ea 07/21/24 [Rx Confirmed 09/13/25] blood sugar diagnostic (OneTouch Verio test strips) #100 ea 07/22/24 [Rx Confirmed 09/13/25] lancets 31 gauge (Comfort Touch Ultra Thin Lancets) #100 ea 07/22/24 [Rx Confirmed 09/13/25] trazodone 50 mg tablet 50 mg PO .qhs 90 days #90 tabs 08/07/25 [Rx Confirmed 09/13/25] tirzepatide 2.5 mg/0.5 mL subcutaneous pen injector (Mounjaro) 2.5 mg (0.5 mL) SUBCUT .q7days #2 mL 08/16/25 [Rx Confirmed 09/13/25] atenolol 50 mg tablet 25 mg PO BEDTIME 08/28/25 [History Confirmed 09/13/25] cholecalciferol (vitamin D3) 125 mcg (5,000 unit) tablet (Vitamin D3) 125 mcg PO BEDTIME 08/28/25 [History Confirmed 09/13/25] cyanocobalamin (vitamin B-12) 5,000 mcg sublingual tablet (Vitamin B-12) 5,000 mcg PO BEDTIME 08/28/25 [History Confirmed 09/13/25] cyclobenzaprine 10 mg tablet 10 mg PO TID PRN muscle spasm #30 tabs 08/28/25 [Rx Confirmed 09/13/25] fluticasone propionate 50 mcg/actuation nasal spray,suspension (Flonase Allergy Relief) 1 spray intranasal DAILY PRN Allergy Symptoms 08/28/25 [History Confirmed 09/13/25] metformin 500 mg tablet,extended release 24 hr 500 mg PO BEDTIME 08/28/25 [History Confirmed 09/13/25] montelukast 10 mg tablet (Singulair) 10 mg PO DAILY PRN Allergy Symptoms 08/28/25 [History Confirmed 09/13/25] rivaroxaban 20 mg tablet (Xarelto) 20 mg PO BEDTIME 08/28/25 [History Confirmed 09/13/25] rosuvastatin 10 mg tablet 10 mg PO BEDTIME 08/28/25 [History Confirmed 09/13/25] sertraline 100 mg tablet 100 mg PO BEDTIME 08/28/25 [History Confirmed 09/13/25] Discharge Plan Discharge Patient Disposition: Home Prescriptions: No Action nystatin 100,000 unit/gram powder 1 applic topical TID PRN (Reason: Rash) (DME) blood-glucose meter Kit See Rx Instructions .Route Qty: 1 0RF Rx Instructions: As directed (DME) OneTouch Verio test strips Strip See Rx Instructions .Route Qty: 100 2RF Rx Instructions: bid and as needed. (DME) Comfort Touch Ult Thin Lancets 31 gauge misc See Rx Instructions .Route Qty: 100 0RF Rx Instructions: As directed trazodone 50 mg tablet 50 mg PO .qhs 90 Days Qty: 90 0RF Mounjaro 2.5 mg/0.5 mL pen injector 2.5 mg SUBCUT .q7days Qty: 2 2RF cyclobenzaprine 10 mg tablet 10 mg PO TID PRN (Reason: muscle spasm) Qty: 30 0RF cholecalciferol (vitamin D3) [Vitamin D3] 125 mcg (5,000 unit) Tablet 125 mcg PO BEDTIME cyanocobalamin (vitamin B-12) [Vitamin B-12] 5,000 mcg Tablet, Sublingual 5,000 mcg PO BEDTIME sertraline 100 mg tablet 100 mg PO BEDTIME Rx Instructions: TAKE ONE TABLET BY MOUTH ONCE DAILY montelukast [Singulair] 10 mg tablet 10 mg PO DAILY PRN (Reason: Allergy Symptoms) fluticasone propionate [Flonase Allergy Relief] 50 mcg/actuation spray,suspension 1 spray intranasal DAILY PRN (Reason: Allergy Symptoms) Rx Instructions: administer into each nostril metformin 500 mg tablet extended release 24 hr 500 mg PO BEDTIME atenolol 50 mg tablet 25 mg PO BEDTIME Rx Instructions: Take 1/2 tablet daily 25mg. rosuvastatin 10 mg tablet 10 mg PO BEDTIME Xarelto 20 mg tablet 20 mg PO BEDTIME Rx Instructions: TAKE ONE TABLET BY MOUTH ONCE DAILY MUST ADMINISTER WITH EVENING MEAL Print Language: Indonesian Coding Level of Care Code Acute Code for Chg Fwd
[2025-09-26 08:08] VITALS: BP 125/83; PULSE 61; RESP 16; O2SAT 96
== END 2025-09-26 08:00 | disposition home or self-care (01) ==
PROVIDERS: PCP Family Medicine; Visit Provider Internal Medicine Cardiovascular Disease
PROC: (CPT 33285; principal; 2025-09-26 07:00)
DX: I63.9 Cerebral infarction, unspecified (principal); E78.5 Hyperlipidemia, unspecified; I10 Essential (primary) hypertension; Z79.84 Long term (current) use of oral hypoglycemic drugs; Z82.49 Family history of ischemic heart disease and other diseases of the circulatory system; F17.290 Nicotine dependence, other tobacco product, uncomplicated; R00.1 Bradycardia, unspecified
CPT/HCPCS: 33285; C1764; C1769; J9999